=== PATIENT | female | born 1945 | race Caucasian/White ===

== ENCOUNTER 2024-06-12 11:20 | Observation (INO) ==
[2024-06-12] MEDS: cefTRIAXone 1 gm/50 mL D5W 1 GM/50 ML BAG IV ONE (11:53)
[2024-06-12 11:55] LABS: ABS Lymphocytes 0.5 10^3/uL (1.0-4.8); ABS Monocytes 1.3 10^3/uL (0.0-0.9); ABS Neutrophils 10.2 10^3/uL (1.5-7.6); ABS Nucleated RBC 0.01 10^3/ul; Eosinophil % 0.1 %; Hematocrit 39.3 % (35-45); Hemoglobin 13.3 g/dL (11.5-14.3); Lymphocyte % 4.5 %; Mean Corpuscular Hemoglobin 29.4 pg (27-33); Mean Corpuscular Hgb Conc 33.8 g/dL (31-36); Mean Corpuscular Volume 86.9 fL (80-97); Mean Platelet Volume 7.3 fL (7.5-11.2); Platelet Count 250 10^3/uL (150-450); Red Blood Count 4.52 10^6/uL (3.63-4.92); Red Cell Distribution Width 12.9 % (12-17)
[2024-06-12] MEDS: Lactated Ringers SEPSIS* BAG 1,710 ML IV ONE (11:55)
[2024-06-12 12:05] LABS: Activated Partial Thrombo Time 33.7 seconds (26.0-38.0); INR 1.2 (0.85-1.14)
[2024-06-12] MEDS: Azithromycin 500 mg/250 ml NS 500 MG/250 ML BAG IVPB ONE (12:27)
[2024-06-12 12:40] LABS: Albumin/Globulin Ratio 1.3 (1-3); C Reactive Protein 138.82 mg/L (<8.01); Calcium 8.9 mg/dL (8.6-10.3); Creatinine, Serum 0.99 mg/dL (0.51-0.95); Potassium 3.8 mmol/L (3.5-5.0); Total Bilirubin 1.7 mg/dL (0.2-1.0)
[2024-06-12] MEDS: NS 0.9% 1000 ml BAG 1,000 ML IV SCH (16:27)
[2024-06-12] MEDS: Enoxaparin 40 MG/0.4 ML SYR SUBCUT SCH (21:13)
[2024-06-13 06:22] LABS: ABS Lymphocytes 1.1 10^3/uL (1.0-4.8); ABS Monocytes 1.3 10^3/uL (0.0-0.9); ABS Neutrophils 11.6 10^3/uL (1.5-7.6); ABS Nucleated RBC 0.01 10^3/ul; Eosinophil % 0.3 %; Hematocrit 34.4 % (35-45); Hemoglobin 11.4 g/dL (11.5-14.3); Lymphocyte % 7.7 %; Mean Corpuscular Hemoglobin 28.9 pg (27-33); Mean Corpuscular Hgb Conc 33.2 g/dL (31-36); Mean Corpuscular Volume 87.1 fL (80-97); Mean Platelet Volume 7.7 fL (7.5-11.2); Platelet Count 221 10^3/uL (150-450); Red Blood Count 3.95 10^6/uL (3.63-4.92); Red Cell Distribution Width 13.2 % (12-17)
[2024-06-13 06:39] LABS: Calcium 7.9 mg/dL (8.6-10.3); Creatinine, Serum 0.74 mg/dL (0.51-0.95); Potassium 3.5 mmol/L (3.5-5.0); eGFR CKD-EPI 82.2 (>60)
[2024-06-13] MEDS: Potassium Chlor 20 meq TAB.ER PO ONE (09:03)
[2024-06-13] MEDS: Multivitamins/Minerals TAB PO SCH (09:03)
[2024-06-13] MEDS: Benzocaine/Menthol LOZ PO PRN (12:01)
[2024-06-13 13:13] VITALS: BP 121/48
[2024-06-13] MEDS: cefTRIAXone 1 gm/50 mL D5W 1 GM/50 ML BAG IV SCH (13:42)
[2024-06-13] MEDS: Azithromycin 500 mg/250 ml NS 500 MG/250 ML BAG IVPB SCH (14:32)
== END 2024-06-13 17:00 | disposition home or self-care (01) ==
LOC: ED 11:20 → EDHOLD 11:20 → MED 15:14
PROVIDERS: ADMIT Hospitalist; ATTEND Hospitalist